=== PATIENT | male | born 1990 | race Caucasian/White ===

== ENCOUNTER 2016-11-04 00:36 | Emergency (ER) | payer MEDICAID ==
[2016-11-04 02:08] VITALS: BP 117/67
== END 2016-11-04 02:08 | disposition home or self-care (01) ==
LOC: ED 00:36
DX: J20.9 Acute bronchitis, unspecified (principal); F17.200 Nicotine dependence, unspecified, uncomplicated; Z71.6 Tobacco abuse counseling
CPT/HCPCS: 99406; J7620; Q0092